=== PATIENT | male | born 2000 | race Caucasian/White ===

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

== ENCOUNTER 2018-04-15 18:00 | Emergency (ER) | payer OTHER ==
[2018-04-15 18:21] VITALS: BP 134/84
[2018-04-15] MEDS ORDERED: KETOROLAC TROMETHAMINE 0.45% 4 DROP/0.4 ML DROPERETTE OD ONE (18:46)
[2018-04-15] MEDS ORDERED: POLYMYXIN B SULFATE/TMP OPH SOLN (10 ML/ER DISP) OD PRN (18:46)
--- NOTE | 2018-04-15 18:51 | ER Document Report ---
ED General - General Chief Complaint: Foreign Body in Eye Stated Complaint: FOREIGN BODY IN EYE Time Seen by Provider: 04/15/18 18:45 TRAVEL OUTSIDE OF THE [place] IN LAST 30 DAYS: No - HPI Patient complains to provider of: Sawdust to the right eye Notes: Patient states has all the skin to his right eye today continues to have irritation even after irrigation. Patient states slight photophobia. Patient denies wearing glasses or contacts. Denies any blurry vision double vision. Patient resting comfortably upon my evaluation. - Related Data Allergies/Adverse Reactions: No Known Allergies Allergy (Verified 02/23/14 15:28) Past Medical History - Social History Smoking Status: Former Smoker Chew tobacco use (# tins/day): Yes Frequency of alcohol use: None Drug Abuse: None Family History: Reviewed & Not Pertinent Patient has suicidal ideation: No Patient has homicidal ideation: No Renal/ Medical History: Denies: Hx Peritoneal Dialysis - Immunizations Immunizations up to date: Yes Hx Diphtheria, Pertussis, Tetanus Vaccination: Yes Review of Systems - Review of Systems Constitutional: No symptoms reported EENT: Other - Eye pain Cardiovascular: No symptoms reported Respiratory: No symptoms reported Gastrointestinal: No symptoms reported Genitourinary: No symptoms reported Male Genitourinary: No symptoms reported Musculoskeletal: No symptoms reported Skin: No symptoms reported Hematologic/Lymphatic: No symptoms reported Neurological/Psychological: No symptoms reported Physical Exam - Vital signs Vitals: Temp Pulse Resp BP Pulse Ox 99.0 F 73 18 134/84 H 99 04/15/18 18:18 04/15/18 18:18 04/15/18 18:18 04/15/18 18:18 04/15/18 18:18 Interpretation: Normal - General General appearance: Appears well, Alert - HEENT Head: Normocephalic, Atraumatic Eyes: Normal Conjunctiva: Injected - Right eye injected left eye unaffected Cornea: Normal - Left eye unaffected there is no fluorescein uptake with staining of the right eye on the cornea there is slight fluorescein uptake in the middle of the inside of the bottom eyelid Extraocular movements intact: Yes Eyelashes: Normal Pupils: PERRL Lids everted for exam: left: Normal - Fluorescein uptake with no foreign body visualized Fundascopic: Normal - Respiratory Respiratory status: No respiratory distress Chest status: Nontender Breath sounds: Normal Chest palpation: Normal - Cardiovascular Rhythm: Regular Heart sounds: Normal auscultation Murmur: No - Abdominal Inspection: Normal Distension: No distension Bowel sounds: Normal Tenderness: Nontender Organomegaly: No organomegaly - Back Back: Normal, Nontender - Extremities General upper extremity: Normal inspection, Nontender, Normal color, Normal ROM , Normal temperature General lower extremity: Normal inspection, Nontender, Normal color, Normal ROM , Normal temperature, Normal weight bearing. No: Teddy's sign - Neurological Neuro grossly intact: Yes Cognition: Normal Orientation: AAOx4 [place] Coma Scale Eye Opening: Spontaneous [place] Coma Scale Verbal: Oriented [place] Coma Scale Motor: Obeys Commands [place] Coma Scale Total: 15 Speech: Normal Motor strength normal: LUE, RUE, LLE, RLE Sensory: Normal - Psychological Associated symptoms: Normal affect, Normal mood - Skin Skin Temperature: Warm Skin Moisture: Dry Skin Color: Normal Course - Re-evaluation Re-evalutation: 04/15/18 21:17 Patient has some forcing the day of the inside of his lower eyelid however I do not see a foreign body in the corneal abrasion. Possibly a small abrasion to the lower eyelid from the salt as being in the patient's eye otherwise irritation from irrigation is my suspicion. Recommend that patient still used Polytrim for the possible eyelid abrasion sunglasses R was given for pain along with some tramadol patient will be discharged home - Vital Signs Vital signs: Temp Pulse Resp BP Pulse Ox 99.0 F 73 18 134/84 H 99 04/15/18 18:18 04/15/18 18:18 04/15/18 18:18 04/15/18 18:18 04/15/18 18:18 Discharge - Discharge Clinical Impression: lower eye lid abrasion, Eye irritation Condition: Good Disposition: HOME, SELF-CARE Instructions: Ketorolac Tromethamine Eye Drops ([facility]), Eye Injury ([facility]), Oral Narcotic Medication ([facility]) Additional Instructions: Follow-up with your primary care physician. Return to ER if symptoms worsen. Take medication as prescribed. Please use eyedrops to be given here in the ER 1-2 drops in the right eye 4 times a day for the next 7 days. He can use the pain medication drops ketorolac drops 1 drop in the right eye twice a day. Follow-up with your primary care physician. Will recommend using darkened sunglasses when outside. If her symptoms worsen please return to the ER for further evaluation. Prescriptions: Ketorolac Tromethamine 0.45% [Acuvail 0.45% Oph Soln 0.4 ml/Dropperette] 1 drop OD BID #5 droperette Tramadol HCl [Ultram 50 mg Tablet] 50 mg PO ASDIR PRN #14 tablet PRN Reason: Forms: Return to Work
== END 2018-04-15 19:03 | disposition home or self-care (01) ==
LOC: ER 18:00
DX: S00.211A Abrasion of right eyelid and periocular area, initial encounter (principal); H53.141 Visual discomfort, right eye; X58.XXXA Exposure to other specified factors, initial encounter; Z87.891 Personal history of nicotine dependence
CPT/HCPCS: 99283; J3490

== ENCOUNTER 2019-04-22 19:43 | Emergency (ER) | payer OTHER ==
[2019-04-22] MEDS ORDERED: IBUPROFEN 800 MG TABLET PO ONE (20:18)
--- NOTE | 2019-04-22 20:40 | RADIOLOGY REPORT (SQ) ---
EXAM DESCRIPTION: XR SHOULDER 2 OR MORE VIEWS COMPLETED DATE/TME: 04/22/2019 19:58 CLINICAL HISTORY: 18 years, Male, bone tenderness COMPARISON: None. NUMBER OF VIEWS: Three TECHNIQUE: Internal/external and transscapular Y projections of the right shoulder were obtained. LIMITATIONS: None. FINDINGS: Visualized osseous structures are normal in appearance. Joint spaces are well-maintained. No acute fracture or dislocation is evident. IMPRESSION: No acute osseous anomaly. copyright 2010 [employer]- All Rights Reserved
--- NOTE | 2019-04-22 20:47 | ER Document Report ---
HPI - HPI Patient complains to provider of: Right shoulder pain Time Seen by Provider: 04/22/19 20:18 Pain Level: 3 Context: Patient is a 18-year-old male presents to the emergency department for right shoulder pain. Patient states in October he pulled a muscle in his chest and states he has had intermittent pain since. States yesterday he picked up a piece of wood at work and thinks he pulled something in his right shoulder. Patient complains of generalized right scapula pain. Patient denies any pain on range of motion her right shoulder just upon palpation of right scapula. Patient denies any other injuries or complaints. Past Medical History - General Information source: Patient - Social History Smoking Status: Unknown if Ever Smoked Family History: Reviewed & Not Pertinent Renal/ Medical History: Denies: Hx Peritoneal Dialysis - Immunizations Immunizations up to date: Yes Hx Diphtheria, Pertussis, Tetanus Vaccination: Yes Vertical Provider Document - CONSTITUTIONAL Agree With Documented VS: Yes Notes: GENERAL: Alert, interacts well. No acute distress. HEAD: Normocephalic, atraumatic. EYES: Pupils equal, round, and reactive to light. Extraocular movements intact. ENT: Oral mucosa moist, tongue midline. NECK: Full range of motion. Supple. Trachea midline. LUNGS: Clear to auscultation bilaterally, no wheezes, rales, or rhonchi. No respiratory distress. HEART: Regular rate and rhythm. No murmur ABDOMEN: Soft, non-tender. Non-distended. Bowel sounds present in all 4 quadrants. EXTREMITIES: Moves all 4 extremities spontaneously. No edema, normal radial and dorsalis pedis pulses bilaterally. No cyanosis.No crepitus felt right shoulder. Full range of motion right shoulder, right elbow, right wrist. Chest: No crepitus felt anterior posterior chest wall, no ecchymosis, erythema noted anterior posterior chest wall. BACK: no cervical, thoracic, lumbar midline tenderness. No saddle anesthesia, normal distal neurovascular exam. NEUROLOGICAL: Alert and oriented x3. Normal speech. cranial nerves II through XII grossly intact PSYCH: Normal affect, normal mood. SKIN: Warm, dry, normal turgor. No rashes or lesions noted. - INFECTION CONTROL TRAVEL OUTSIDE OF THE [place] IN LAST 30 DAYS: No Course - Re-evaluation Re-evalutation: 04/22/19 20:44 Shoulder X-Ray 04/22/19 19:58 IMPRESSION: No acute osseous anomaly. copyright 2010 [employer]- All Rights Reserved Discussed close follow-up with orthopedics for potential MRI. Discussed shoulder exercises on return precautions. At this time will discharge with return precautions and follow-up recommendations. Verbal discharge instructions given a the bedside and opportunity for questions given. Medication warnings reviewed. Patient is in agreement with this plan and has verbalized understanding of return precautions and the need for primary care follow-up in the next 24-72 hours. This medical record was dictated with voice recognizing software. There may be grammatical, syntax errors that are unintended. - Vital Signs Vital signs: Temp Pulse Resp BP Pulse Ox 98.5 F 88 18 136/84 H 98 04/22/19 19:48 04/22/19 19:48 04/22/19 19:48 04/22/19 19:48 04/22/19 19:48 Discharge - Discharge Clinical Impression: Right shoulder pain Qualifiers: Chronicity: acute Qualified Code(s): M25.511 - Pain in right shoulder Condition: Stable Disposition: HOME, SELF-CARE Instructions: Exercise Program for the Shoulder ([facility]), Shoulder Injury ([facility]) Additional Instructions: As we discussed you have been seen and treated in the emergency department for an injury to your right shoulder. Please make sure you are taking anti- inflammatories as needed for pain. Please also make sure you follow-up with ort hopedics and primary care provider for continued care. Please return to the emergency room for any further concerns. Referrals: MARK JHA MD [ACTIVE STAFF] - Follow up as needed SHYANN TOLBERT MD [ACTIVE PROVISIONAL STAFF] - Follow up as needed
[2019-04-22 20:57] VITALS: BP 132/87
== END 2019-04-22 21:06 | disposition home or self-care (01) ==
LOC: ER 19:43
DX: M25.511 Pain in right shoulder (principal)
CPT/HCPCS: 99283